=== PATIENT | female | born 1955 | race Caucasian/White ===

== ENCOUNTER 2019-10-03 10:43 | Observation (INO) | payer MEDICARE ==
[2019-10-03] MEDS ORDERED: MORPHINE SULFATE 4 MG/ML SYRINGE IV STA (11:01)
[2019-10-03] MEDS ORDERED: LABETALOL 5 MG/ML VIAL MDV IVP STA (11:08)
--- NOTE | 2019-10-03 11:18 | ED ---
General Adult HPI <José Youssef - Last Filed: 10/03/19 13:33> - General Source: patient, RN notes reviewed, old records reviewed Mode of arrival: ambulatory Limitations: no limitations <Man Sotelo - Last Filed: 10/03/19 13:44> - General Chief complaint: Recheck/Abnormal Lab/Rx Stated complaint: High BP chest pain Time Seen by Provider: 10/03/19 10:54 - History of Present Illness Initial comments: 64-year-old female patient past history of hypertension hyperlipidemia lupus process to ED for evaluation. Patient reports that for the last 3 days she has been having coughing some mild shortness of breath and some mild dull aching in her midsternal chest region. Reports that is slightly pleuritic in nature. All were that she has had a mild waxing and waning headache over this time. She went to the urgent care to get tested for coronavirus and she is found to have her blood pressure very elevated. Patient was previously on antihypertensives however she was able to be taken on these medications after having a syncopal weight loss and her blood pressure being more recently controlled. She denies any other complaints. She denies any positive coronavirus contacts. Systemic: Pt denies fatigue, fever/chills, rash. Pt denies weakness, night sweats, weight loss. Neuro: Pt denies headache, visual disturbances, syncope or pre-syncope. HEENT: Pt denies ocular discharge or irritation, otalgia, rhinorrhea, pharyngitis or notable lymphadenopathy. Cardiopulmonary: Pt denies heart palpitations, dyspnea on exertion. Abdominal/GI: Pt denies abdominal pain, n/v/d. : Pt denies dysuria, burning w/ urination, frequency/urgency. Denies new onset urinary or bowel incontinence. MSK: Pt denies myalgia, loss of strength or function in extremities. Neuro: Pt denies new onset weakness, paresthesias. (Man Sotelo) - Related Data Home Medications Medication Instructions Recorded Confirmed Aspirin 324 mg PO ONCE PRN 10/03/19 10/03/19 Aspirin EC [Ecotrin Low Dose] 81 mg PO DAILY 10/03/19 10/03/19 Allergies Allergy/AdvReac Type Severity Reaction Status Date / Time latex Allergy Rash/Hives Verified 10/03/19 12:05 Review of Systems ROS Other: All systems not noted in ROS Statement are negative. <José Youssef - Last Filed: 10/03/19 13:33> ROS Other: All systems not noted in ROS Statement are negative. <Man Sotelo - Last Filed: 10/03/19 13:44> ROS Statement: Those systems with pertinent positive or pertinent negative responses have been documented in the HPI. Past Medical History Past Medical History: Hyperlipidemia, Hypertension Additional Past Medical History / Comment(s): Lupus Past Surgical History: Hysterectomy, Orthopedic Surgery Additional Past Surgical History / Comment(s): Lab Band(2009) Past Psychological History: No Psychological Hx Reported Smoking Status: Never smoker Past Alcohol Use History: None Reported Past Drug Use History: None Reported <Man Sotelo - Last Filed: 10/03/19 13:44> General Exam Limitations: no limitations <Man Soetlo - Last Filed: 10/03/19 13:44> - General Exam Comments Initial Comments: Constitutional: NAD, AOX3, Pt has pleasant affect. HEENT: NC/AT, trachea midline, neck supple, no lymphadenopathy. Posterior pharynx non erythematous, without exudates. External ears appear normal, without discharge. Mucous membranes moist. Eyes PERRLA, EOM intact. There is no scleral icterus. No pallor noted. Cardiopulmonary: RRR, no murmurs, rubs or gallops, no JVD noted. Lungs CTAB in anterior and posterior collado. No peripheral edema. Abdominal exam: Abdomen soft and non-distended. Abdomen non-tender to palpation in all 4 quadrants. Bowel sounds active in LLQ. No hepatosplenomegaly. No ecchymosis Neuro: CN II-XII intact. No nuchal rigidity. No raccon eyes, no murillo sign, no hemotympanum. No cervical spinal tenderness. MSK: No posterior calf tenderness bilaterally, homans sign negative bilaterally. Posterior tibialis and radial pulse +2 bilaterally. Sensation intact in upper and lower extremities. Full active ROM in upper and lower extremities, 5/5 stregnth. (Man Sotelo) Course Vital Signs 10/03/19 10/03/19 10/03/19 10:44 12:05 13:25 Temperature 97.9 F Pulse Rate 69 60 67 Respiratory 16 16 18 Rate Blood Pressure 215/122 187/108 179/109 O2 Sat by Pulse 98 96 95 Oximetry Medical Decision Making - Lab Data Result diagrams: 10/03/19 11:10 10/03/19 11:10 <José Youssef - Last Filed: 10/03/19 13:33> - Lab Data Result diagrams: 10/03/19 11:10 10/03/19 11:10 - EKG Data -: EKG Interpreted by Me (and Dr. Youssef ) <Man Sotelo - Last Filed: 10/03/19 13:44> - Medical Decision Making Patient reevaluated and reexamined by myself, Dr. Youssef. Patient resting comfortably in bed. I do agree with PA findings. This includes diagnostic interpretation and treatment plan. Case was discussed with Dr. Moreno, who will admit covering for hospital call. Blood pressure is improving. (José Youssef) 64-year-old female patient past history of hypertension hyperlipidemia lupus process to ED for evaluation. Patient reports that for the last 3 days she has been having coughing some mild shortness of breath and some mild dull aching in her midsternal chest region. Reports that is slightly pleuritic in nature. All were that she has had a mild waxing and waning headache over this time. She went to the urgent care to get tested for coronavirus and she is found to have her blood pressure very elevated. Patient was previously on antihypertensives however she was able to be taken on these medications after having a syncopal weight loss and her blood pressure being more recently controlled. She denies any other complaints. She denies any positive coronavirus contacts. Patient vital signs are for hypertension. Patient has antihypertensive. Physical exam otherwise benign. Neurologic exam is intact. NIH is 0. Laboratory investigations are obtained and are overall noncompressive. Troponin is negative. CT brain without contrast negative for acute process. CTA negative for any PE. EKG nonischemic. Patient was administered 325 aspirin at urgent care. Patient will be admitted to telemetry for serial troponins and cardiology evaluation. Case discussed in depth with Dr. Youssef. (Man Sotelo) - Lab Data Lab Results 10/03/19 10/03/19 10/03/19 Range/Units 11:10 11:10 11:10 WBC 6.2 (3.8-10.6) k/uL RBC 5.27 (3.80-5.40) m/uL Hgb 15.7 (11.4-16.0) gm/dL Hct 48.8 H (34.0-46.0) % MCV 92.6 (80.0-100.0) fL MCH 29.8 (25.0-35.0) pg MCHC 32.2 (31.0-37.0) g/dL RDW 12.3 (11.5-15.5) % Plt Count 199 (150-450) k/uL Neutrophils % 64 % Lymphocytes % 23 % Monocytes % 6 % Eosinophils % 5 % Basophils % 1 % Neutrophils # 4.0 (1.3-7.7) k/uL Lymphocytes # 1.4 (1.0-4.8) k/uL Monocytes # 0.4 (0-1.0) k/uL Eosinophils # 0.3 (0-0.7) k/uL Basophils # 0.1 (0-0.2) k/uL PT 9.7 (9.0-12.0) sec INR 0.9 (<1.2) APTT 24.2 (22.0-30.0) sec D-Dimer 0.58 (<0.60) mg/L FEU Sodium 139 (137-145) mmol/L Potassium 4.1 (3.5-5.1) mmol/L Chloride 105 (98-107) mmol/L Carbon Dioxide 28 (22-30) mmol/L Anion Gap 6 mmol/L BUN 15 (7-17) mg/dL Creatinine 0.74 (0.52-1.04) mg/dL Est GFR (CKD-EPI)AfAm >90 (>60 ml/min/1.73 sqM) Est GFR (CKD-EPI)NonAf 86 (>60 ml/min/1.73 sqM) Glucose 126 H (74-99) mg/dL Plasma Lactic Acid Yoshi (0.7-2.0) mmol/L Calcium 9.2 (8.4-10.2) mg/dL Magnesium 1.9 (1.6-2.3) mg/dL Total Bilirubin 0.7 (0.2-1.3) mg/dL AST 24 (14-36) U/L ALT 18 (4-34) U/L Alkaline Phosphatase 99 (38-126) U/L Lactate Dehydrogenase 580 (313-618) U/L Troponin I (0.000-0.034) ng/mL C-Reactive Protein 8.4 (<10.0) mg/L Total Protein 7.6 (6.3-8.2) g/dL Albumin 4.2 (3.5-5.0) g/dL 10/03/19 10/03/19 Range/Units 11:10 12:05 WBC (3.8-10.6) k/uL RBC (3.80-5.40) m/uL Hgb (11.4-16.0) gm/dL Hct (34.0-46.0) % MCV (80.0-100.0) fL MCH (25.0-35.0) pg MCHC (31.0-37.0) g/dL RDW (11.5-15.5) % Plt Count (150-450) k/uL Neutrophils % % Lymphocytes % % Monocytes % % Eosinophils % % Basophils % % Neutrophils # (1.3-7.7) k/uL Lymphocytes # (1.0-4.8) k/uL Monocytes # (0-1.0) k/uL Eosinophils # (0-0.7) k/uL Basophils # (0-0.2) k/uL PT (9.0-12.0) sec INR (<1.2) APTT (22.0-30.0) sec D-Dimer (<0.60) mg/L FEU Sodium (137-145) mmol/L Potassium (3.5-5.1) mmol/L Chloride (98-107) mmol/L Carbon Dioxide (22-30) mmol/L Anion Gap mmol/L BUN (7-17) mg/dL Creatinine (0.52-1.04) mg/dL Est GFR (CKD-EPI)AfAm (>60 ml/min/1.73 sqM) Est GFR (CKD-EPI)NonAf (>60 ml/min/1.73 sqM) Glucose (74-99) mg/dL Plasma Lactic Acid Yoshi 1.3 (0.7-2.0) mmol/L Calcium (8.4-10.2) mg/dL Magnesium (1.6-2.3) mg/dL Total Bilirubin (0.2-1.3) mg/dL AST (14-36) U/L ALT (4-34) U/L Alkaline Phosphatase (38-126) U/L Lactate Dehydrogenase (313-618) U/L Troponin I <0.012 (0.000-0.034) ng/mL C-Reactive Protein (<10.0) mg/L Total Protein (6.3-8.2) g/dL Albumin (3.5-5.0) g/dL - EKG Data EKG Comments: Ventricular rate 69, ND interval 180, QRS 90, QT/QTC 382/409. Normal sinus rhythm, possible inferior infarct age undetermined. No concern for acute ischemia at this time. (Man Sotelo) Disposition <José Youssef - Last Filed: 10/03/19 13:33> Is patient prescribed a controlled substance at d/c from ED?: No <Man Sotelo - Last Filed: 10/03/19 13:44> Clinical Impression: Chest pain, Hypertensive urgency Disposition: ADMITTED IP TO THIS HOSP Condition: Serious Referrals: None,Stated [Primary Care Provider] - 1-2 days
[2019-10-03 11:22] LABS: Basophils # (A) 0.1 k/uL (0-0.2); Basophils % (A) 1 %; Eosinophils # (A) 0.3 k/uL (0-0.7); Eosinophils % (A) 5 %; HCT 48.8 % (34.0-46.0); HGB 15.7 gm/dL (11.4-16.0); Lymphocytes # (A) 1.4 k/uL (1.0-4.8); Lymphocytes % (A) 23 %; MCH 29.8 pg (25.0-35.0); MCHC 32.2 g/dL (31.0-37.0); MCV 92.6 fL (80.0-100.0); Monocytes # (A) 0.4 k/uL (0-1.0); Monocytes % (A) 6 %; Neutrophils % (A) 64 %; Platelet Count 199 k/uL (150-450); RBC 5.27 m/uL (3.80-5.40); RDW 12.3 % (11.5-15.5); WBC 6.2 k/uL (3.8-10.6)
[2019-10-03 11:33] LABS: ALT 18 U/L (4-34); AST 24 U/L (14-36); African American GFR (CKD) >90 (>60 ml/min/1.73 sqM); Albumin 4.2 g/dL (3.5-5.0); Alkaline Phosphatase 99 U/L (38-126); Anion Gap 6 mmol/L; Blood Urea Nitrogen 15 mg/dL (7-17); C Reactive Protein 8.4 mg/L (<10.0); Calcium 9.2 mg/dL (8.4-10.2); Carbon Dioxide 28 mmol/L (22-30); Chloride 105 mmol/L (98-107); Glucose 126 mg/dL (74-99); LDH 580 U/L (313-618); Magnesium 1.9 mg/dL (1.6-2.3); Non-African American GFR(CKD) 86 (>60 ml/min/1.73 sqM); Potassium 4.1 mmol/L (3.5-5.1); Sodium 139 mmol/L (137-145); Total Bilirubin 0.7 mg/dL (0.2-1.3); Total Protein 7.6 g/dL (6.3-8.2)
[2019-10-03 11:41] LABS: D-Dimer 0.58 mg/L FEU (<0.60); INR 0.9 (<1.2); Partial Thromboplastin Time 24.2 sec (22.0-30.0); Prothrombin Time 9.7 sec (9.0-12.0)
--- NOTE | 2019-10-03 13:07 | CT ---
EXAMINATION TYPE: CT brain wo con DATE OF EXAM: 10/03/2019 COMPARISON: None INDICATION: [place], hypertension DLP: 1098.4 mGycm, Automated exposure control for dose reduction was used. CONTRAST: None CT of the brain is performed utilizing 3 mm thick sections through the posterior fossa and 3 mm thick sections through the remaining calvarium. Study is performed within 24 hours of arrival to the hosp ital. No abnormal hyperdensity is present to suggest an acute intracranial hemorrhage. No mass lesion is evident. No acute infarcts are evident. Ventricles and sulci are appropriate for the patient age. Paranasal sinuses and mastoid air cells within the [id number] are clear. IMPRESSIONS: 1. Normal CT Brain
--- NOTE | 2019-10-03 13:17 | CT ---
CT CHEST FOR PULMONARY EMBOLISM. EXAMINATION TYPE: CT chest angio for PE DATE OF EXAM: 10/03/2019 INDICATION: Elevated d dimer CT DLP: 614.8 mGycm, Automated exposure control for dose reduction was used. CONTRAST: Patient injected with 64 mL of Isovue 370. COMPARISON: None TECHNIQUE: CT of the chest is performed on a spiral scan at 2 mm thick sections. Study is performed with intravenous contrast timed for evaluation for pulmonary embolism. This will limit additional po rtions of the evaluation. 3-D MIP images reconstructed by the technologist are reviewed on the compu ter in the coronal and sagittal planes. FINDINGS: No persistent filling defects are evident to suggest an acute pulmonary embolism. No mediastinal or hilar adenopathy enlarged by CT criteria is evident. The ascending aorta diameter at the level of the main pulmonary artery is 3.6 cm. The main pulmonary artery diameter at the bifur cation is 2.5 cm. Lung windows are clear. There is a small hiatal hernia present Limited CT section through the upper abdomen are unremarkable. IMPRESSIONS: 1. No acute pulmonary embolism. 2. Small hiatal hernia.
[2019-10-03] MEDS ORDERED: NITROGLYCERIN OINT 1 INCH/GM PACKET TOPICAL STA (13:22)
[2019-10-03] MEDS ORDERED: ENALAPRILAT 1.25 MG/ML 1 ML VIAL IVP PRN (13:26)
[2019-10-03] MEDS ORDERED: METOPROLOL SUCCINATE (ER) 25 MG TAB.ER.24H PO SCH (13:30)
[2019-10-03] MEDS ORDERED: NITROGLYCERIN SL TABS 0.4 MG TAB SUBLINGUAL PRN (13:42)
[2019-10-03] MEDS ORDERED: METOPROLOL TARTRATE 50 MG TAB PO SCH (13:45)
[2019-10-03] MEDS ORDERED: ONDANSETRON 4 MG/2 ML VIAL IVP PRN (15:47)
[2019-10-03] MEDS ORDERED: hydrALAZINE HCL 20 MG/ML 1 ML VIAL IVP PRN (15:47)
[2019-10-03] MEDS ORDERED: LISINOPRIL-HCTZ 10-12.5 MG 1 EACH TAB PO SCH (16:00)
[2019-10-03] MEDS ORDERED: hydroCHLOROthiazide 12.5 MG CAP PO SCH (16:00)
--- NOTE | 2019-10-03 16:26 | P.HPIM ---
History of Present Illness H&P Date: 10/03/19 Chief Complaint: Not feeling well This is a 64-year-old female with no significant past medical history who presented to the ER referred from a local urgent care. Patient went to the urgent care originally with concern about having symptoms of [place] at . Since Sunday she has been having generalized ache and chills along with diarrhea and a nonproductive cough. She also reports shortness of breath and chest ache. Patient denies any contact with someone known to have [place] at 19. She has been using general precaution wearing a mask in public and socially distance from other people. She did not have any large gathering recently. She was evaluated in the urgent care and her blood pressure was found to be elevated so she was referred to the ER. On presentation blood pressure 2:15/122. Patient was given IV labetalol and IV enalapril as currently admitted to the hospital for further management. Her blood pressure has improved. She reported that chest tightness is gone. Twelve-lead EKG in the ER showed no acute ischemic changes. Initial troponin was negative. Review of Systems Review of system: 14 points review of systems were obtained and were negative except to what were mentioned in the HPI. Past Medical History Past Medical History: Hyperlipidemia, Hypertension Additional Past Medical History / Comment(s): Lupus History of Any Multi-Drug Resistant Organisms: None Reported Past Surgical History: Hysterectomy, Orthopedic Surgery Additional Past Surgical History / Comment(s): Lab Band(2009) Past Anesthesia/Blood Transfusion Reactions: No Reported Reaction Past Psychological History: No Psychological Hx Reported Smoking Status: Never smoker Past Alcohol Use History: None Reported Past Drug Use History: None Reported Medications and Allergies Home Medications Medication Instructions Recorded Confirmed Type Aspirin EC [Ecotrin Low Dose] 81 mg PO DAILY 10/03/19 10/03/19 History RX: Aspirin 324 mg PO ONCE PRN 10/03/19 10/03/19 History Allergies Allergy/AdvReac Type Severity Reaction Status Date / Time latex Allergy Rash/Hives Verified 10/03/19 12:05 Physical Exam Vitals: Vital Signs Temp Pulse Pulse Resp BP BP Pulse Ox 10/03/19 15:58 54 L 155/90 10/03/19 14:15 98.2 F 97 18 190/83 97 10/03/19 14:13 97 18 10/03/19 14:01 56 L 16 183/110 96 10/03/19 13:25 67 18 179/109 95 10/03/19 12:05 60 16 187/108 96 10/03/19 10:44 97.9 F 69 16 215/122 98 Intake and Output 10/03/19 10/03/19 10/03/19 06:59 14:59 22:59 Other: Weight 99.79 kg General: The patient is awake and alert, in no distress Eye: there is normal conjunctiva bilaterally. Neck: The neck is supple, there is no JVD. Cardiovascular: Normal S1-S2, no S3-S4, no murmurs. Respiratory: Lungs are diminished Gastrointestinal: Abdomen is soft, nontender Musculoskeletal: There is no pedal edema. Neurological:. Speech is normal. Skin: Skin is warm and dry Results CBC & Chem 7: 10/03/19 11:10 10/03/19 11:10 Labs: Abnormal Lab Results - Last 24 Hours (Table) 10/03/19 10/03/19 Range/Units 11:10 11:10 Hct 48.8 H (34.0-46.0) % Glucose 126 H (74-99) mg/dL Thrombosis Risk Factor Assmnt - Choose All That Apply Other Risk Factors: Yes Each Risk Factor Represents 2 Points: Age 61-74 years Thrombosis Risk Factor Assessment Total Risk Factor Score: 2 Thrombosis Risk Factor Assessment Level: Low Risk Assessment and Plan Assessment: 1. [place] 19 rule out: Less likely based on clinical presentation. D-dimer and CRP within normal range. We will continue precaution awaiting test results. 2. Hypertensive urgency, blood pressure improving. Start lisinopril/hydrochlorothiazide 10/12.5 mg daily starting tomorrow morning. Repeat blood pressure 152/85 per nursing staff 3. Chest pain, most likely atypical in nature secondary to elevated blood pressure. Twelve-lead EKG in the ER showed no acute ischemic changes. Initial troponin is negative. CT angiogram negative for PE. Cardiology consulted by ED physician. 4. DVT prophylaxis with subcu heparin
[2019-10-03 20:25] LABS: Ferritin 156.4 ng/mL (10.0-291.0)
[2019-10-03] MEDS: ACETAMINOPHEN TAB 325 MG TAB PO PRN (20:43)
[2019-10-03] MEDS: HEPARIN SODIUM,PORCINE 5,000 UNIT/ML 1 ML VIAL SQ SCH (20:44)
[2019-10-03] MEDS ORDERED: METOCLOPRAMIDE 5 MG/ML 2 ML VIAL IVP STA (22:22)
[2019-10-04] MEDS ORDERED: METOCLOPRAMIDE 5 MG/ML 2 ML VIAL IVP STA (04:29)
[2019-10-04 06:08] LABS: Cholesterol 249 mg/dL (<200); HDL Cholesterol 57 mg/dL (40-60); LDL Cholesterol,Calculated 175 mg/dL (0-99); Triglycerides 87 mg/dL (<150)
[2019-10-04] MEDS: ASPIRIN 325 MG TAB PO SCH (08:09)
[2019-10-04] MEDS: HEPARIN SODIUM,PORCINE 5,000 UNIT/ML 1 ML VIAL SQ SCH ×2 (08:09→20:48)
--- NOTE | 2019-10-04 08:13 | P.CRDCN ---
History of Present Illness Consult date: 10/04/19 Consult reason: chest pain, hypertension Chief complaint: Chills, vomiting, headache History of present illness: History of present illness: This is a 64-year-old female with no significant past medical history except for obesity status post lap band surgery with loss initially of 80 pounds subsequently gained 20 pounds back. Prior to lap band surgery, she she was treated for hypertension and was on lisinopril but after weight loss, this was discontinued due to improvement of her blood pressure readings. The patient has never had cardiac workup no filter worker seen in the past. Patient states she had aches and chills as well as diarrhea that started on Sunday. Diarrhea lasted for about 3 days and now she is suffering from nausea and vomiting along with some cough and shortness of breath and chest ache. She also complains of headache. She initially presented to [facility] and was found to have elevated blood pressure was systolic in the 200s and was sent to [facility] emergency [facility] for evaluation. On presentation, blood pressure was 215/122, heart rate 69, of less than 8% on room air. EKG was a sinus rhythm with no acute ST-T wave changes. CAT scan of the brain was normal. Lab work revealed troponins is -3 times, pro-calcitonin 0.07. D-dimer 0.58. Electrolytes normal, BUN 15 and creatinine 0.74. WBC 6.2 and hemoglobin 15.7. CTA of the chest was negative for pulmonary embolism which saw a small hiatal hernia. Patient received IV labetalol, IV enalapril, Lopressor 50 mg, morphine, Nitropaste and lisinopril hydrochlorothiazide 10/12.5 mg. Blood pressure was improved on last reading at 163/88. Blood pressure now is 190/106. Patient continues to have slight headache but improved, nausea. She denies having any chest pain at this time. She complains of generalized body aches. Patient denies any known COVID-19 exposure and has been practicing social distancing. COVID-19 testing in process. Review Of Systems: Constitutional: No documented fever, reports chills. Reports fatigue. EENT: Reports headache. No blurred vision or double vision, no loss of vision. No loss of Hearing, no dizziness. No nasal drainage or congestion. No epistaxis. No sore throat. Lungs: No shortness of breath, cough, no sputum production. No wheezing. Cardiovascular: No chest pain, no lower extremity edema. No palpitations. No paroxysmal nocturnal dyspnea. No orthopnea. No lightheadedness or dizziness. No syncopal episodes. Abdominal: No abdominal pain. Reports nausea, vomiting. No diarrhea. No constipation. No bloody or tarry stools.Reports loss of appetite. Genitourinary: No dysuria, increased frequency, urgency. No urinary retention. Musculoskeletal: Reports myalgias. No muscle weakness, no gait dysfunction, no frequent falls. No back pain. Reports neck pain. Integumentary: No wounds, no lesions. No rash or pruritus. No unusual bruising. Neurologic: No aphasia. No facial droop. No change in mentation. No head injury. Reports headache. No paralysis. No paresthesia. Psychiatric: No depression. No anxiety. No mood swings. Endocrine: No abnormal blood sugars. No weight change. No excessive sweating or thirst. No weight change. Physical examination: Gen: This is a a 64-year-old female. She is resting in bed and appears to be comfortable. No acute distress noted. HEENT: Head is atraumatic, normocephalic. Pupils equal, round. Sclerae is anicteric. Oral mucous membranes are slightly dry. NECK: Supple. No JVD. No lymphadenopathy. No thyromegaly. LUNGS: Diminished in the bases but otherwise Clear to auscultation. No wheezes or rhonchi. No intercostal retractions. HEART: Regular rate and rhythm. No murmur. ABDOMEN: Soft. Bowel sounds are present. No masses. Left upper quadrant and epigastric tenderness. EXTREMITIES: No pedal edema. No calf tenderness. Dorsalis pedis +2 bilaterally. NEUROLOGICAL: Patient is awake, alert and oriented x3. Cranial nerves 2 through 12 are grossly intact. Assessment: Hypertensive emergency Chest discomfort with no acute coronary syndrome Chills, vomiting diarrhea cough, rule out COVID19 History morbid obesity status post weight loss of 60 pounds status post lap band Plan: Continue lisinopril hydrochlorothiazide 10/12.5 mg daily but increase lisinopril to 20 mg Add amlodipine 10 mg daily Monitor blood pressure closely IV hydralazine 10 mg every 6 hours as needed Obtain 2-D echocardiogram and Doppler study to assess cardiac structure and fun ction Start IV fluids or 0.9 normal saline until evaluated by attending Continue Zofran as needed for nausea vomiting COVID-19 testing Further recommendations to follow based upon clinical course Thank you kindly for this consultation Nurse practitioner note has been reviewed, I agree with documented findings and plan of care. Patient was seen and examined. Past Medical History Past Medical History: Hyperlipidemia, Hypertension Additional Past Medical History / Comment(s): Lupus History of Any Multi-Drug Resistant Organisms: None Reported Past Surgical History: Hysterectomy, Orthopedic Surgery Additional Past Surgical History / Comment(s): Lab Band(2009) Past Anesthesia/Blood Transfusion Reactions: No Reported Reaction Past Psychological History: No Psychological Hx Reported Smoking Status: Never smoker Past Alcohol Use History: None Reported Past Drug Use History: None Reported Medications and Allergies Home Medications Medication Instructions Recorded Confirmed Type Aspirin 324 mg PO ONCE PRN 10/03/19 10/03/19 History Aspirin EC [Ecotrin Low Dose] 81 mg PO DAILY 10/03/19 10/03/19 History Allergies Allergy/AdvReac Type Severity Reaction Status Date / Time latex Allergy Rash/Hives Verified 10/03/19 12:05 Physical Exam Vitals: Vital Signs Temp Pulse Pulse Resp BP BP Pulse Ox 10/04/19 03:00 97.4 F L 73 18 163/88 94 L 10/03/19 22:12 172/100 10/03/19 21:00 98 F 83 18 214/115 94 L 10/03/19 18:14 66 173/81 10/03/19 15:58 54 L 155/90 10/03/19 14:15 98.2 F 97 18 190/83 97 10/03/19 14:13 97 18 10/03/19 14:01 56 L 16 183/110 96 10/03/19 13:25 67 18 179/109 95 10/03/19 12:05 60 16 187/108 96 10/03/19 10:44 97.9 F 69 16 215/122 98 Intake and Output 10/03/19 10/04/19 10/04/19 22:59 06:59 14:59 Intake Total 850 0 Balance 850 0 Intake: Oral 850 0 Other: Voiding Method Toilet Toilet # Voids 1 2 # Emeses 1 Results 10/03/19 11:10 10/03/19 11:10 Cardiac Enzymes 10/03/19 10/03/19 10/03/19 Range/Units 11:10 11:10 14:00 AST 24 (14-36) U/L Lactate Dehydrogenase 580 (313-618) U/L Troponin I <0.012 <0.012 (0.000-0.034) ng/mL 10/03/19 Range/Units 17:24 AST (14-36) U/L Lactate Dehydrogenase (313-618) U/L Troponin I <0.012 (0.000-0.034) ng/mL Coagulation 10/03/19 Range/Units 11:10 PT 9.7 (9.0-12.0) sec APTT 24.2 (22.0-30.0) sec Lipids 10/04/19 Range/Units 05:22 Triglycerides 87 (<150) mg/dL Cholesterol 249 H (<200) mg/dL HDL Cholesterol 57 (40-60) mg/dL CBC 10/03/19 Range/Units 11:10 WBC 6.2 (3.8-10.6) k/uL RBC 5.27 (3.80-5.40) m/uL Hgb 15.7 (11.4-16.0) gm/dL Hct 48.8 H (34.0-46.0) % Plt Count 199 (150-450) k/uL Comprehensive Metabolic Panel 10/03/19 Range/Units 11:10 Sodium 139 (137-145) mmol/L Potassium 4.1 (3.5-5.1) mmol/L Chloride 105 (98-107) mmol/L Carbon Dioxide 28 (22-30) mmol/L BUN 15 (7-17) mg/dL Creatinine 0.74 (0.52-1.04) mg/dL Glucose 126 H (74-99) mg/dL Calcium 9.2 (8.4-10.2) mg/dL AST 24 (14-36) U/L ALT 18 (4-34) U/L Alkaline Phosphatase 99 (38-126) U/L Total Protein 7.6 (6.3-8.2) g/dL Albumin 4.2 (3.5-5.0) g/dL Current Medications Generic Name Dose Route Start Last Admin Trade Name Freq PRN Reason Stop Dose Admin Acetaminophen 650 mg 10/03/19 15:47 10/03/19 20:43 Tylenol Tab PO 650 mg Q6HR PRN Administration Fever and/ or Pain Aspirin 325 mg 10/04/19 09:00 Aspirin PO DAILY [facility] Lisinopril/HCTZ 1 each 10/04/19 09:00 Zestoretic 10-12.5 PO DAILY [facility] Heparin Sodium (Porcine) 5,000 unit 10/03/19 21:00 10/03/19 20:44 Heparin SQ 5,000 unit Q12HR [facility] Administration Hydralazine HCl 10 mg 10/03/19 15:47 10/03/19 20:48 Apresoline IVP 10 mg Q6HR PRN Administration Blood Pressure - High Nitroglycerin 0.4 mg 10/03/19 13:42 Nitrostat SUBLINGUAL Q5M PRN Chest Pain Ondansetron HCl 4 mg 10/03/19 15:47 Zofran IVP Q6HR PRN Nausea And Vomiting Intake and Output 10/03/19 10/04/19 10/04/19 22:59 06:59 14:59 Intake Total 850 0 Balance 850 0 Intake: Oral 850 0 Other: Voiding Method Toilet Toilet # Voids 1 2 # Emeses 1 10/03/19 11:10 10/03/19 11:10
[2019-10-04] MEDS: ACETAMINOPHEN TAB 325 MG TAB PO PRN ×2 (08:18→17:33)
[2019-10-04] MEDS: SODIUM CHLORIDE 0.9% 1,000 ML IV SCH (08:20)
[2019-10-04] MEDS ORDERED: LISINOPRIL-HCTZ 10-12.5 MG 1 EACH TAB PO SCH (09:00)
[2019-10-04] MEDS ORDERED: lisinopriL 10 MG TAB PO STA (09:26)
[2019-10-04] MEDS: amLODIPine 10 MG TAB PO SCH (09:44)
--- NOTE | 2019-10-04 12:59 | ECHOF ---
Referral Reason:LVF MEASUREMENTS -------- HEIGHT: 170.2 cm WEIGHT: 99.8 kg BP: RVIDd: 3.1 cm (< 3.3) IVSd: 1.5 cm (0.6 - 1.1) LVIDd: 3.8 cm (3.9 - 5.3) LVPWd: 1.7 cm (0.6 - 1.1) IVSs: 1.8 cm LVIDs: 2.7 cm LVPWs: 1.9 cm LAESV Index (A-L): 29.51 ml/m Ao Diam: 2.4 cm (2.0 - 3.7) MV EXCURSION: 12.526 mm (> 18.000) MV EF SLOPE: 41 mm/s (70 - 150) EPSS: 0.2 cm MV E Handy: 0.58 m/s MV DecT: 300 ms MV A Handy: 1.04 m/s MV E/A Ratio: 0.56 AR PHT: 565 ms RAP: 5.00 mmHg RVSP: 10.09 mmHg FINDINGS -------- Sinus rhythm. This was a technically adequate study. The left ventricular size is normal. There is moderate concentric left ventricular hypertrophy. O verall left ventricular systolic function is low-normal with, an EF between 50 - 55 %. The right ventricle is normal in size. The left atrium is mildly dilated. LA is midly dilated 29-33ml/m2. The right atrial size is normal. There is mild aortic valve sclerosis. There is mild aortic regurgitation. Mild mitral regurgitation is present. Mild tricuspid regurgitation present. Right ventricular systolic pressure is normal at < 35 mmHg. There is no pulmonic regurgitation present. The aortic root size is normal. There is no pericardial effusion. CONCLUSIONS -------- 1. Sinus rhythm. 2. The left ventricular size is normal. 3. There is moderate concentric left ventricular hypertrophy. 4. Overall left ventricular systolic function is low-normal with, an EF between 50 - 55 %. 5. The right ventricle is normal in size. 6. The left atrium is mildly dilated. 7. LA is midly dilated 29-33ml/m2. 8. The right atrial size is normal. 9. There is mild aortic valve sclerosis. 10. There is mild aortic regurgitation. 11. Mild mitral regurgitation is present. 12. Mild tricuspid regurgitation present. 13. Right ventricular systolic pressure is normal at < 35 mmHg. EQUIPMENT SCHEDULER: Sherice Muir RDCS
--- NOTE | 2019-10-04 17:02 | P.PN ---
Subjective Progress Note Date: 10/04/19 Patient is doing well today. She's complaining of a mild headache. Blood pressures improving but is not normal yet. Objective - Vital Signs Vital signs: Vital Signs Temp 98.1 F 10/04/19 14:59 Pulse 77 10/04/19 14:59 Resp 16 10/04/19 15:00 BP 176/93 10/04/19 14:59 Pulse Ox 96 10/04/19 14:59 Intake & Output 10/03/19 10/04/19 10/04/19 18:59 06:59 18:59 Intake Total 400 450 660 Balance 400 450 660 Weight 99.79 kg Intake: IV 350 Sodium Chloride 0.9% 1, 350 000 ml @ 50 mls/hr IV . Q20H CHINO Rx#:[id number] Oral 400 450 310 Other: Voiding Method Toilet Toilet # Voids 1 2 2 # Emeses 1 - Exam General: The patient is awake and alert, in no distress Eye: there is normal conjunctiva bilaterally. Neck: The neck is supple, there is no JVD. Cardiovascular: Normal S1-S2, no S3-S4, no murmurs. Respiratory: Lungs clear to auscultation bilaterally Gastrointestinal: Abdomen is soft, nontender Musculoskeletal: There is no pedal edema. Neurological:. Speech is normal. Skin: Skin is warm and dry - Labs CBC & Chem 7: 10/03/19 11:10 10/03/19 11:10 Labs: Abnormal Lab Results - Last 24 Hours (Table) 10/04/19 Range/Units 05:22 Cholesterol 249 H (<200) mg/dL LDL Cholesterol, Calc 175 H (0-99) mg/dL Assessment and Plan Assessment: 1. Covid- 19 rule out: Less likely based on clinical presentation. D-dimer and CRP within normal range. We will continue precaution awaiting test results. 2. Hypertensive urgency, blood pressure improving. Blood pressure regimen adjusted by cardiology 3. Chest pain, most likely atypical in nature secondary to elevated blood pressure. Twelve-lead EKG in the ER showed no acute ischemic changes. Serial troponin negative [address] angiogram negative for PE. Cardiology consulted, echocardiogram showed preserved EF of 55%. 4. DVT prophylaxis with subcu heparin
[2019-10-05] MEDS: ACETAMINOPHEN TAB 325 MG TAB PO PRN ×2 (00:24→09:11)
[2019-10-05] MEDS: SODIUM CHLORIDE 0.9% 1,000 ML IV SCH (00:25)
[2019-10-05 04:54] VITALS: PULSE 74; TEMP 98.3
[2019-10-05] MEDS ORDERED: METOPROLOL SUCCINATE (ER) 50 MG TAB.ER.24H PO SCH (09:00)
[2019-10-05] MEDS ORDERED: LISINOPRIL-HCTZ 20-12.5 MG 1 EACH TAB PO SCH (09:00)
[2019-10-05] MEDS: ASPIRIN 325 MG TAB PO SCH (09:11)
[2019-10-05] MEDS: amLODIPine 10 MG TAB PO SCH (09:11)
[2019-10-05] MEDS: HEPARIN SODIUM,PORCINE 5,000 UNIT/ML 1 ML VIAL SQ SCH (09:11)
[2019-10-05 09:30] VITALS: RESP 16
--- NOTE | 2019-10-05 10:12 | PN ---
PROGRESS NOTE Skye is a 64-year-old lady who is admitted to hospital with uncontrolled hypertension and suspected Covid. I did not physically evaluate the patient to conserve the personal protective equipment. I evaluated the patient over the phone. The patient unfortunately continues to have uncontrolled hypertension and has mild headache, but she is feeling a lot better than she did yesterday. On exam, she is afebrile. Heart rate is 74 beats and blood pressure is 180/112, O2 saturation is 92% on room air. She had an echocardiogram by me, that revealed normal LV systolic function with mild aortic regurgitation and mild mitral regurgitation. I do not have any labs on her from this morning. Her LDL cholesterol is elevated at 175. Three sets of troponins are negative. ASSESSMENT: 1. Severe uncontrolled hypertension. 2. Nausea and headache. 3. Dyslipidemia. PLAN: I am increasing the dose of Norvasc to 10 mg daily. Add Toprol-XL 50 mg daily. Continue the Zestoretic that she is on. I spoke to Dr. Peng, the hospitalist, who sees the patient who will reassess the patient this afternoon and if she is still has high blood pressures, start her on hydralazine. If she is feeling better, let her go home and we will follow her in the outpatient setting and optimize the blood pressure medications. She does have dyslipidemia and we are going to address this in the outpatient setup. She needs to be started on a statin, but I will do this when she is more stable and her nausea and headaches have improved. MMODL / IJN: [id number] /
[2019-10-05 11:07] VITALS: BP 156/90
--- NOTE | 2019-10-05 12:30 | P.DS ---
Providers Date of admission: 10/03/19 13:44 Expected date of discharge: 10/05/19 Attending physician: Teri Macdonald DO Consults: 10/03/19 13:42 Consult Physician Urgent Consulting Provider: Nathaniel Henry Consult Reason/Comments: Hypertensive urgency, chest pain Do you want consulting provider notified?: Yes Primary care physician: Stated None Hospital Course: This is a 64-year-old female with no significant past medical history who was referred to the ER from a local urgent care for further evaluation of uncontrolled blood pressure. Patient was evaluated in the ER and admitted to the hospital for further management of her medical problems noted below. 1. Covid- 19 rule out: Less likely based on clinical presentation. D-dimer and CRP within normal range. I sent to the lab but is taking too long and patient will be updated from lab results 2. Hypertensive urgency, blood pressure improving. Blood pressure regimen adjusted by cardiology. Currently on amlodipine 10 mg daily, Toprol-XL 50 mg daily, and lisinopril/hydrochlorothiazide 20/12.5 mg daily 3. Chest pain, most likely atypical in nature secondary to elevated blood pressure. Twelve-lead EKG in the ER showed no acute ischemic changes. Serial troponin negative [address] angiogram negative for PE. Cardiology consulted, echocardiogram showed preserved EF of 55%. 4. Hyperlipidemia, and started on Lipitor 20 mg daily Patient was advised to continue to monitor her blood pressure readings at home. Follow-up with cardiology in the office as directed. Patient will be discharged home in a stable condition. For further details about this hospitalization please refer to the electronic chart. Patient Condition at Discharge: Fair Plan - Discharge Summary Discharge Rx Participant: Yes New Discharge Prescriptions: New Atorvastatin Calcium [Lipitor] 20 mg PO HS #30 tab amLODIPine [Norvasc] 10 mg PO DAILY #30 tab Metoprolol Succinate (ER) [Toprol XL] 50 mg PO DAILY #30 tab.er.24h Lisinopril-Hctz 20-12.5 mg [Zestoretic 20-12.5] 1 each PO DAILY #30 tab Continue Aspirin EC [Ecotrin Low Dose] 81 mg PO DAILY Discontinued Aspirin 324 mg PO ONCE PRN PRN Reason: Chest Pain Discharge Medication List Aspirin EC [Ecotrin Low Dose] 81 mg PO DAILY 10/03/19 [History] Atorvastatin Calcium [Lipitor] 20 mg PO HS #30 tab 08/02/20 [Rx] Lisinopril-Hctz 20-12.5 mg [Zestoretic 20-12.5] 1 each PO DAILY #30 tab 10/05/19 [Rx] Metoprolol Succinate (ER) [Toprol XL] 50 mg PO DAILY #30 tab.er.24h 10/05/19 [Rx] amLODIPine [Norvasc] 10 mg PO DAILY #30 tab 10/05/19 [Rx] Follow up Appointment(s)/Referral(s): None,Stated [Primary Care Provider] - 1-2 days Silver Jurado MD [STAFF PHYSICIAN] - 1 Week Discharge Disposition: HOME SELF-CARE
== END 2019-10-05 13:19 | disposition home or self-care (01) ==
LOC: EC 10:43 → 3NCARDOBS 13:44
PROVIDERS: ADMIT Internal Medicine; ATTEND Internal Medicine
DX: I16.0 Hypertensive urgency (principal); E78.5 Hyperlipidemia, unspecified; R68.83 Chills (without fever); R11.2 Nausea with vomiting, unspecified; R19.7 Diarrhea, unspecified; R05 Cough; R52 Pain, unspecified; I08.3 Combined rheumatic disorders of mitral, aortic and tricuspid valves; I10 Essential (primary) hypertension; M32.9 Systemic lupus erythematosus, unspecified; R94.31 Abnormal electrocardiogram [ECG] [EKG]; K44.9 Diaphragmatic hernia without obstruction or gangrene; E66.9 Obesity, unspecified; Z68.34 Body mass index [BMI] 34.0-34.9, adult; Z20.828 Contact with and (suspected) exposure to other viral communicable diseases; Z79.82 Long term (current) use of aspirin; Z91.040 Latex allergy status; Z90.710 Acquired absence of both cervix and uterus; Z98.890 Other specified postprocedural states; Z98.84 Bariatric surgery status
CPT/HCPCS: 93005 ×2; 96372 ×3; 96375 ×3; 96376; 96374; 99285; 36415; 93306; 85379; 80061; 80053; 82728; 83605; 83615; 83735; 84484; 85025; 85610; 85730; 86140; 84145; 70450; 71275; G0378 ×3; U0003; J2270; J0360; J1644 ×3; J2765 ×2; J2405; Q9967

== ENCOUNTER → 2022-05-22 | Outpatient (CLI) | payer MEDICARE ==
--- NOTE | 2022-05-23 16:54 | MM ---
Reason for Exam: Screening (asymptomatic). Indicated Problems: Pain of the left side (Focal) for 2 Month(s). Patient History: Menarche at age 13. Left ovary removed at age 59. Right ovary removed at age 59. Hysterectomy at age 59. Patient used Hormonal Contraceptives for 9 years. Maternal cousin had breast cancer. Maternal cousin had breast cancer. Risk Values: Evonne 5 year model risk: 1.1%. NCI Lifetime model risk: 3.8%. Prior Study Comparison: No prior studies available for comparison. Tissue Density: There are scattered fibroglandular densities. Findings: Analyzed By CAD. Thyroid appears symmetrical. Markers over the upper outer posterior left breast. No underlying mammographic abnormality is evident. Clinical management of this area is recommended. No suspicious groups of microcalcifications, spiculated or lobular masses, architectural distortion or other secondary signs of malignancy are mammographically apparent. Overall Assessment: Negative, BI-RAD 1 Management: Screening Mammogram of both breasts in 1 year. A negative mammogram report should not preclude additional follow up of suspicious palpable abnormalities. Patient should continue monthly self breast exam. A clinical breast exam by your physician is recommended on an annual basis and results should be correlated with mammographic findings. Electronically signed and approved by: Jhonatan Meza D.O. Radiologis
== END | disposition home or self-care (01) ==
LOC: RADMAMWWP 11:10
PROVIDERS: ATTEND Internal Medicine
DX: Z12.31 Encounter for screening mammogram for malignant neoplasm of breast (principal); Z80.3 Family history of malignant neoplasm of breast
CPT/HCPCS: 77063; 77067

== ENCOUNTER → 2022-07-04 | Outpatient (CLI) | payer MEDICARE ==
--- NOTE | 2022-07-04 19:48 | MR ---
EXAMINATION TYPE: MR brain wo/w con DATE OF EXAM: 07/04/2022 COMPARISON: NONE HISTORY: Headache, belles palsy, pressure behind eyes, complete right sided weakness TECHNIQUE: Multiplanar, multisequence images of the brain and brainstem is performed without and with IV contras t, utilizing 12 mL intravenous Gadavist . FINDINGS: Diffusion weighted images demonstrate no evidence of a recent infarct or other diffusion ab normality. There is mild ventricular and sulcal prominence. Scattered small foci of T2 hyperintensit y are seen throughout the white matter bilaterally most prominent periventricular levels. Approximate ly 20 scattered lesions are seen. Lesions are nonspecific in appearance and distribution. . Midline structures demonstrate normal morphology. The craniocervical junction appears within normal limits. Post contrast images demonstrate no abnormal enhancement. The dural venous sinuses appear pa tent. The visualized sinuses are clear and the globes are intact. IMPRESSION: Mild diffuse age-related cerebral atrophy and probable chronic small vessel ischemic hood ge. No abnormal enhancement is noted.
== END | disposition home or self-care (01) ==
LOC: RADMRIMAIN 17:58
PROVIDERS: ATTEND Internal Medicine
DX: G31.1 Senile degeneration of brain, not elsewhere classified (principal); G51.0 Bell's palsy
CPT/HCPCS: 70553

== ENCOUNTER → 2022-07-21 | Outpatient (CLI) | payer MEDICARE ==
[2022-07-21 16:19] LABS: Appearance,Urine Clear (Clear); Bilirubin,Urine Negative (Negative); Blood,Urine Negative (Negative); Color,Urine Yellow; Glucose,Urine (UA) Negative (Negative); Ketones,Urine Negative (Negative); Leukocyte Esterase,Urine Negative (Negative); Nitrite,Urine Negative (Negative); Protein,Urine Negative (Negative); Specific Gravity,Urine 1.021 (1.001-1.035); Urobilinogen,Urine <2.0 mg/dL (<2.0)
== END | disposition home or self-care (01) ==
LOC: LABWHC1 15:05
PROVIDERS: ATTEND Internal Medicine
DX: N28.9 Disorder of kidney and ureter, unspecified (principal); R73.9 Hyperglycemia, unspecified
CPT/HCPCS: 36415; 81003; 83036

== ENCOUNTER 2022-08-02 11:19 | Day surgery (SDC) | payer MEDICARE ==
[2022-08-02] MEDS ORDERED: LIDOCAINE 1% (10MG/ML) FOR IV START INTRADERMA PRN (11:45)
[2022-08-02] MEDS ORDERED: LACTATED RINGERS 1,000 ML IV SCH (11:45)
[2022-08-02 11:55] VITALS: TEMP 97.4
[2022-08-02 12:00] LABS: Glucose,Whole Blood 123 mg/dL (70-110)
[2022-08-02] MEDS ORDERED: PROPOFOL 10 MG/ML 20 ML VIAL IV ONE (12:21)
--- NOTE | 2022-08-02 12:34 | P.PCN ---
Date of Procedure: 08/02/22 Procedure(s) Performed: BRIEF HISTORY: Patient is a 66-year-old pleasant female scheduled for an elective colonoscopy as a part of screening for colon cancer. PROCEDURE PERFORMED: Colonoscopy with snare polypectomy. PREOPERATIVE DIAGNOSIS: Screening for colon cancer. IV sedation per Anesthesia. PROCEDURE: After informed consent was obtained, the patient, was brought into the endoscopy unit. IV sedation was administered by Anesthesia under continuous monitoring. Digital rectal examination was normal. Initially the Olympus CF-160 flexible video colonoscope was then inserted in the rectum, gradually advanced into the cecum without any difficulty. Careful examination was performed as the scope was gradually being withdrawn. Ileocecal valve and the appendiceal orifice were visualized and appeared normal. Prep was excellent. Mucosa of the cecum, ascending colon, transverse colon, descending colon, appeared normal. In the descending colon there was a 6 mm sessile polyp removed by snare polypectomy. Rest of the sigmoid colon, and rectum appeared normal. Scattered sigmoid diverticulosis Retroflexion was performed in the rectum and grade 2 internal hemorrhoids were seen. The patient tolerated the procedure well. IMPRESSION: 6 mm descending colon polyp status post polypectomy Scattered sigmoid diverticulosis Grade 2 internal hemorrhoids RECOMMENDATIONS: Findings of this examination were discussed with the patient .as well as a family. She was advised to follow with the biopsy results. If the biopsy, she can have a repeat colonoscopy in 5 years
[2022-08-02 13:01] VITALS: BP 158/94; PULSE 64; RESP 16
== END 2022-08-02 13:26 | disposition home or self-care (01) ==
LOC: ORWHC2ENDO 11:19
PROVIDERS: ATTEND Internal Medicine Gastroenterology
DX: Z12.11 Encounter for screening for malignant neoplasm of colon (principal); D12.4 Benign neoplasm of descending colon; K57.30 Diverticulosis of large intestine without perforation or abscess without bleeding; K64.1 Second degree hemorrhoids; I10 Essential (primary) hypertension; E78.5 Hyperlipidemia, unspecified; J42 Unspecified chronic bronchitis; R73.03 Prediabetes; M32.9 Systemic lupus erythematosus, unspecified; Z79.84 Long term (current) use of oral hypoglycemic drugs; Z79.899 Other long term (current) drug therapy; Z91.040 Latex allergy status
CPT/HCPCS: 88305; 45385; J2704

== ENCOUNTER → 2022-08-03 | Outpatient (CLI) | payer MEDICARE ==
--- NOTE | 2022-08-03 14:41 | BD ---
EXAMINATION TYPE: Axial Bone Density DATE OF EXAM: 08/03/2022 CLINICAL HISTORY: 66 years old Female. ICD-10 CODE: Z78.0 POST MENOPAUSAL Height: 64.8 Weight: 255 FRAX RISK QUESTIONS: Family History (Parent hip fracture): no fx Glucocorticoids (More than 3mos): yes (Ex: prednisone, prednisolone, methylprednisolone, dexamethasone, and hydrocortisone). RISK FACTORS HISTORY OF: History of Wrist Fracture: right wrist as a teen. Family History of Osteoporosis: grandmother, mother and great aunt on maternal side, no hip fx Postmenopausal woman: yes, at age 52 yrs old Lost more than 2 inches in height since high school: yes Hyperparathyroidism: no Adrenal Insufficiency: no MEDICATIONS: Prednisone or other steroids: yes, for chronic bronchitis, breathing treatments, and inhalers, predni sone How Long: for many yrs Additional Medications: bp meds, beta josh, metformin, tums, for reflux, vit d beverage supplement , statin for cholesterol, Additional History: Rachel band surgery, hiatal hernia repair, lupus, renal complications, EXAM MEASUREMENTS: Bone mineral densitometry was performed using the [employer] System. Bone mineral density as measured about the Lumbar spine is: ----- L1-L4(G/cm2): 1.424 T Score Values are as follows: ----- L1: -0.4 ----- L2: 2.0 ----- L3: 3.8 ----- L4: 2.2 ----- L1-L4: 2.0 Z Score Values are as follows: ----- L1: 0.0 ----- L2: 2.5 ----- L3: 4.2 ----- L4: 2.7 ----- L1-L4: 2.5 Bone mineral density is a first dexa study for this patient. Bone mineral density about the R hip (g/cm2): 1.091 Bone mineral density about the L hip (g/cm2): 1.183 T Score values are as follows: -----R Neck: -0.6 -----L Neck: -0.5 -----R Total: 0.7 -----L Total: 1.4 Z Score values are as follows: -----R Neck: 0.2 -----L Neck: 0.3 -----R Total: 1.2 -----L Total: 1.9 Bone mineral density is a baseline study. FRAX%s: The graph provided illustrates a 10.8% chance for a major osteoporotic fx and a 0.7% chance f or the hips probability for fx in 10 years time. IMPRESSION: Normal (Values between +1 and -1 indicate normal bone mass). Consider repeating this study in 5 year s or sooner if there is some new clinical indication. NOTE: T-SCORE=SD OF THE YOUNG ADULT MEAN.
== END | disposition home or self-care (01) ==
LOC: RADBDWWP 13:05
PROVIDERS: ATTEND Internal Medicine
DX: Z13.820 Encounter for screening for osteoporosis (principal); Z78.0 Asymptomatic menopausal state
CPT/HCPCS: 77080

== ENCOUNTER → 2022-08-18 | Outpatient (CLI) | payer MEDICARE ==
--- NOTE | 2022-08-18 13:46 | US ---
EXAMINATION TYPE: US kidneys/renal and bladder DATE OF EXAM: 08/18/2022 COMPARISON: NONE CLINICAL INDICATION: Female, 66 years old with history of N28.9 DISORDER OF KIDNEY AND URETER, UNSPEC IFIED; Renal insufficiency. EXAM MEASUREMENTS: Right Kidney: 11.2 x 5.0 x 5.1 cm Left Kidney: 11.9 x 5.7 x 5.2 cm Right Kidney: Anechoic area seen lower pole: 2.0 x 0.7 x 0.9 cm. Left Kidney: Anechoic areas seen within the kidney that appear to be connecting-appearance of hydro nephrosis. Bladder: Appears wnl Bilateral Jets seen: No IMPRESSION: 1. Couple anechoic areas within the mid and inferior pole left kidney inferior pole, hydronephrosis i s favored. 2. Anechoic area within the inferior pole right kidney could be small peripelvic cyst.
== END | disposition home or self-care (01) ==
LOC: RADUSWWP 12:13
PROVIDERS: ATTEND Internal Medicine
DX: N28.9 Disorder of kidney and ureter, unspecified (principal)
CPT/HCPCS: 76770